=== PATIENT | male | born 1995 | race American Indian/Alaskan Native ===

== ENCOUNTER 2021-02-24 23:20 | Emergency (ER) | payer SELFPAY ==
[2021-02-24 23:41] VITALS: BP 133/88
[2021-02-25 00:10] LABS: Basophils % (Auto) 0.4 % (0.0-1.8); Eosinophils # (Auto) 0.1 K/mm3 (0.0-0.4); Eosinophils % (Auto) 0.7 % (0.0-4.3); Hematocrit 44.2 % (35.5-45.6); Hemoglobin 15.5 gm/dl (11.8-15.2); Lymphocytes # (Auto) 3.1 K/mm3 (1.2-5.4); Lymphocytes % (Auto) 31.4 % (13.4-35.0); Mean Corpuscular HGB Conc 35 % (32-34); Mean Corpuscular Volume 99 fl (84-94); Monocytes # (Auto) 0.6 K/mm3 (0.0-0.8); Monocytes % (Auto) 6.2 % (0.0-7.3); Platelet Count 340 K/mm3 (140-440); Red Blood Count 4.46 M/mm3 (3.65-5.03); Red Cell Distribution Width 12.3 % (13.2-15.2)
[2021-02-25 00:34] LABS: Alanine Aminotransferase 37 units/L (7-56); BUN/Creatinine Ratio 8; Blood Urea Nitrogen 8 mg/dL (9-20); Hemolysis Index 8
--- NOTE | 2021-02-25 02:32 | Emergency Department Report ---
ED General Adult HPI - General Chief complaint: Arrhythmia/Palpitations Stated complaint: HBP,DIZZINESS,RACING HEART RATE Time Seen by Provider: 02/25/21 02:08 Source: patient Mode of arrival: Ambulatory Limitations: No Limitations - History of Present Illness Initial comments: Patient is a 25-year-old male who states he is on testosterone therapy and st arted to experience palpitations start testosterone 3 days ago and wanted to make sure that he had no cardiac effects. There is no nausea vomiting, no dizziness, no lightheadedness, no shortness of breath, no diaphoresis. There is no other medical history. Patient is tolerating p.o. and hydrating at this time. - Related Data Allergies Allergy/AdvReac Type Severity Reaction Status Date / Time No Known Allergies Allergy Unverified 02/24/21 23:37 ED Review of Systems ROS: Stated complaint: HBP,DIZZINESS,RACING HEART RATE Other details as noted in HPI Constitutional: denies: chills, fever Eyes: denies: eye pain, eye discharge, vision change ENT: denies: ear pain, throat pain Respiratory: denies: cough, shortness of breath, wheezing Cardiovascular: palpitations. denies: chest pain Endocrine: no symptoms reported Gastrointestinal: denies: abdominal pain, nausea, diarrhea Genitourinary: denies: urgency, dysuria Musculoskeletal: denies: back pain, joint swelling, arthralgia Skin: denies: rash, lesions Neurological: denies: headache, weakness, paresthesias Psychiatric: denies: anxiety, depression Hematological/Lymphatic: denies: easy bleeding, easy bruising ED Past Medical Hx - Past Medical History Previous Medical History?: No - Surgical History Past Surgical History?: No - Social History Smoking Status: Never Smoker ED Physical Exam - General Limitations: No Limitations General appearance: alert - Head Head exam: Present: atraumatic, normocephalic - Eye Eye exam: Present: normal appearance, EOMI Pupils: Present: normal accommodation - ENT ENT exam: Present: mucous membranes moist - Neck Neck exam: Present: normal inspection, full ROM. Absent: tenderness - Respiratory Respiratory exam: Present: normal lung sounds bilaterally. Absent: respiratory distress, wheezes, stridor - Cardiovascular Cardiovascular Exam: Present: regular rate, normal rhythm, normal heart sounds. Absent: systolic murmur, diastolic murmur, rubs, gallop - GI/Abdominal GI/Abdominal exam: Present: soft, normal bowel sounds. Absent: distended, tende rness, bruit, hernia - Rectal Rectal exam: Present: deferred - Extremities Exam Extremities exam: Present: normal inspection, full ROM. Absent: tenderness - Back Exam Back exam: Present: normal inspection, full ROM. Absent: CVA tenderness (R), CVA tenderness (L) - Neurological Exam Neurological exam: Present: alert, oriented X3, CN II-XII intact, normal gait - Psychiatric Psychiatric exam: Present: normal affect, normal mood - Skin Skin exam: Present: warm, dry, intact, normal color. Absent: rash ED Course Vital Signs 02/24/21 23:40 Temperature 98.4 F Pulse Rate 69 Respiratory 16 Rate Blood Pressure 133/88 O2 Sat by Pulse 98 Oximetry ED Medical Decision Making - Lab Data Result diagrams: 02/24/21 23:48 02/24/21 23:48 Labs 02/24/21 02/24/21 23:48 23:48 WBC 10.0 RBC 4.46 Hgb 15.5 H Hct 44.2 MCV 99 H MCH 35 H MCHC 35 H RDW 12.3 L Plt Count 340 Lymph % (Auto) 31.4 [place] % (Auto) 6.2 Eos % (Auto) 0.7 Baso % (Auto) 0.4 Lymph # (Auto) 3.1 [place] # (Auto) 0.6 Eos # (Auto) 0.1 Baso # (Auto) 0.0 Seg Neutrophils % 61.3 Seg Neutrophils # 6.1 Sodium 139 Potassium 4.1 Chloride 99.7 Carbon Dioxide 28 Anion Gap 15 BUN 8 L Creatinine 1.0 Estimated GFR > 60 BUN/Creatinine Ratio 8 Glucose 106 H Calcium 10.0 Total Bilirubin 0.30 AST 56 H ALT 37 Alkaline Phosphatase 92 Total Protein 7.4 Albumin 5.0 Albumin/Globulin Ratio 2.1 - EKG Data EKG shows normal: sinus rhythm, axis, intervals, QRS complexes, ST-T waves Rate: normal - EKG Data Interpretation: normal EKG (Normal sinus rhythm no ST elevated [place] EKG interpreted by ED attending.) - Radiology Data Radiology results: report reviewed - Medical Decision Making Patient advised to stop testosterone therapy and follow-up with Dr. Ma as directed. There is no chest pain, no palpitation at this time. Patient is tolerating p.o. hydration. There is no dizziness lightheadedness no nausea vomiting. Patient appears well well-nourished well-hydrated with no acute distress at this time. Return to emergency if symptoms worsen Critical care attestation.: If time is entered above; I have spent that time in minutes in the direct care of this critically ill patient, excluding procedure time. ED Disposition Clinical Impression: Palpitations Disposition: DC-01 TO HOME OR SELFCARE Is pt being admited?: No Does the pt Need Aspirin: No Condition: Stable Instructions: Palpitations, [id number] Additional Instructions: Stop taking testosterone therapy follow-up with your doctor in 1 to 2 days. Return to emergency should symptoms worsen.. Referrals: ZAIDA SANTANA MD [Staff Physician] - 3-5 Days LUZ KEANE MD [Staff Physician] - 3-5 Days Forms: Work/School Release Form(ED) Time of Disposition: 02:35
--- NOTE | 2021-02-25 19:44 | Electrocardiograph Report ---
[facility] Test Date: 2021-02-24 Test Time: 23:44:28 Pat Name: JOHN DEAN Department: Room: Gender: M Marketer: RADHA : 1995 Requested By: JAYDA BLACK Order Number: [id number] Reading MD: Mingo Landry Measurements Intervals [place] Rate: 61 P: 50 IN: 182 QRS: 88 QRSD: 93 T: 43 QT: 381 QTc: 385 Interpretive Statements Sinus rhythm ST elev, probable normal early repol pattern No previous ECG available for comparison Electronically Signed On 02-25-2021 19:44:17 EDT by Mingo Landry
== END 2021-02-25 02:42 | disposition home or self-care (01) ==
LOC: ED 23:20
DX: R00.2 Palpitations (principal)
CPT/HCPCS: 36415; 80053; 85025; 93005; 94640

== ENCOUNTER 2022-04-13 20:38 | Emergency (ER) | payer SELFPAY ==
[2022-04-13 21:07] VITALS: BP 140/92
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
[2022-04-14] MEDS ORDERED: IBUPROFEN 800 MG TAB PO ONE (02:17)
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
== END 2022-04-14 03:22 | disposition home or self-care (01) ==
LOC: ED 20:38
DX: S80.02XA Contusion of left knee, initial encounter (principal); R20.0 Anesthesia of skin; V89.2XXA Person injured in unspecified motor-vehicle accident, traffic, initial encounter; Y93.89 Activity, other specified; Y92.89 Other specified places as the place of occurrence of the external cause; Y99.8 Other external cause status
CPT/HCPCS: 99283